=== PATIENT | female | born 1980 | race African-American/Black ===

== ENCOUNTER 2019-09-09 12:19 | Emergency (ER) | payer MEDICARE ==
[~2019-09-09] VITALS: Ht 160 cm; Wt 109.4 kg
[2019-09-09 12:39] VITALS: BP 126/77
--- NOTE | 2019-09-09 13:27 | NUR ---
[employer]: PT TO ROOM FROM LOBBY
--- NOTE | 2019-09-09 13:34 | NUR ---
PT HERE WITH HER BASELINE SYMPTOMS OF TRIGEMINAL NEURALGIA (LEFT). SHE HAS LEFT HER MEDS AT HOME AFTER VISITING HERE FOR VACATION.
--- NOTE | 2019-09-09 13:47 | NUR ---
MAMTA-Juan Carlos IS AT THE BEDSIDE FOR ASSESSMENT
[2019-09-09] MEDS ORDERED: OXYcodone/APAP 5/325MG TABLET ONE (13:56)
[2019-09-09] MEDS ORDERED: OXYcodone/APAP 5/325MG TABLET PO ONE (14:00)
== END 2019-09-09 14:18 | disposition home or self-care (01) ==
LOC: ED 14:12
DX: M79.2 Neuralgia and neuritis, unspecified (principal); Z76.0 Encounter for issue of repeat prescription
CPT/HCPCS: 99283